=== PATIENT | male | born 1995 | race Caucasian/White ===

== ENCOUNTER 2016-12-13 20:09 | Emergency (ER) | payer OTHER ==
[~2016-12-13] VITALS: Ht 172.7 cm; Wt 123.0 kg
[~2016-12-13 20:09] MED LIST: MELATONIN5 M1 PO; QUETIAPINE FUM100 MG PO; RISPERIDONE0.5 MG PO
[2016-12-13 20:59] VITALS: BP 110/67
== END 2016-12-13 21:00 | disposition home or self-care (01) ==
LOC: EME 20:09
DX: Z76.0 Encounter for issue of repeat prescription (principal); F20.9 Schizophrenia, unspecified
CPT/HCPCS: 99281; 99283